=== PATIENT | male | born 1950 | race Caucasian/White ===

== ENCOUNTER 2018-12-20 18:30 | Emergency (ER) | payer MEDICARE, OTHER ==
[~2018-12-20] VITALS: Wt 142.9 kg
[2018-12-20] MEDS ORDERED: LIPITOR 80MG80 MG PO (18:45)
[2018-12-20] MEDS ORDERED: NORVASC 10MG10 MG PO (18:45)
[2018-12-20] MEDS ORDERED: CLOPIDOGREL PO (18:46)
[2018-12-20] MEDS ORDERED: FUROSEMIDE40 MG (18:47)
[2018-12-20] MEDS ORDERED: NOVOLOG 100U100 U/ML SQ (18:47)
[2018-12-20] MEDS ORDERED: COZAAR100 MG PO (18:48)
[2018-12-20] MEDS ORDERED: MAGNESIUM OXID400 MG PO (18:48)
[2018-12-20] MEDS ORDERED: LANTUS PEN100 U/ML SQ (18:48)
[2018-12-20] MEDS ORDERED: ALDACTONE 25MG25 MG PO (18:49)
[2018-12-20] MEDS ORDERED: TOPROL XL 50MG50 MG PO (18:49)
[2018-12-20] MEDS ORDERED: ZOLOFT 100MG100 MG PO (18:49)
[2018-12-20] MEDS ORDERED: METFORMIN HYD1000 MG PO (18:49)
[2018-12-20] MEDS ORDERED: FISH OIL1 IU PO (18:50)
[2018-12-20] MEDS ORDERED: DESYREL 100MG100 MG PO (18:50)
[2018-12-20] MEDS ORDERED: TOPCARE ASPIRIN81 M1 PO (18:50)
[2018-12-20 19:30] LABS: EOS # 0.1 (0.04-0.40); EOS % 1.5 % (0.0-4.0); HEMATOCRIT 40.4 % (42.0-52.0); HEMOGLOBIN 13.6 g/dL (13.5-18.0); LYMPH# 1.4 (1.50-4.00); MEAN CELL VOLUME 91 fl (78-100); MEAN CORPUSCULAR HEMOGLOBIN 31 pg (27-31); MEAN CORPUSCULAR HGB CONC 34 g/dL (33-37); MEAN PLATELET VOLUME 9.1 fl (7.4-10.4); MONO # 0.5 (0.20-0.80); NEU # 7.1 (1.40-6.50); PLATELET COUNT 188 K/mm3 (130-400); RED BLOOD COUNT 4.43 M/mm3 (4.20-5.60); RED CELL DISTRIBUTION WIDTH 12.7 % (11.5-14.5); WHITE BLOOD COUNT 9.2 K/mm3 (4.8-10.8)
[2018-12-20 19:40] LABS: ALBUMIN 4.2 g/dL (3.4-4.8)
[2018-12-20 19:41] LABS: POTASSIUM 4.4 mmol/L (3.5-5.1)
[2018-12-20 19:42] LABS: CALCIUM 9.8 mg/dL (8.3-10.5)
[2018-12-20 19:43] LABS: TOTAL PROTEIN 7.4 g/dL (6.2-8.1)
[2018-12-20 19:45] LABS: TOTAL BILIRUBIN 0.4 mg/dL (0.2-1.2)
[2018-12-20] MEDS ORDERED: MUCINEX 60600 MG/TA1 PO (20:40)
[2018-12-20 20:58] VITALS: BP 143/81
== END 2018-12-20 21:00 | disposition home or self-care (01) ==
LOC: ED 18:30
PROVIDERS: Physician Assistant
DX: J40 Bronchitis, not specified as acute or chronic (principal); N28.9 Disorder of kidney and ureter, unspecified; E11.9 Type 2 diabetes mellitus without complications; I10 Essential (primary) hypertension; G47.33 Obstructive sleep apnea (adult) (pediatric); Z86.73 Personal history of transient ischemic attack (TIA), and cerebral infarction without residual deficits; Z95.2 Presence of prosthetic heart valve; Z79.02 Long term (current) use of antithrombotics/antiplatelets; Z79.4 Long term (current) use of insulin; Z79.82 Long term (current) use of aspirin

== ENCOUNTER 2020-10-26 11:06 | Emergency (ER) | payer MEDICARE, OTHER ==
[~2020-10-26] VITALS: Ht 182.9 cm; Wt 142.9 kg
[~2020-10-26 11:06] MED LIST: ALDACTONE 25MG25 MG PO; CLOPIDOGREL PO; COZAAR100 MG PO; DESYREL 100MG100 MG PO; FISH OIL1 IU PO; FUROSEMIDE40 MG; LANTUS PEN100 U/ML SQ; LIPITOR 80MG80 MG PO; MAGNESIUM OXID400 MG PO; METFORMIN HYD1000 MG PO; MUCINEX 60600 MG/TA1 PO; NORVASC 10MG10 MG PO; NOVOLOG 100U100 U/ML SQ; TOPCARE ASPIRIN81 M1 PO; TOPROL XL 50MG50 MG PO; ZOLOFT 100MG100 MG PO
[2020-10-26] MEDS ORDERED: AUGMENTIN 875-1 EAC1 PO (12:09)
[2020-10-26 12:18] VITALS: BP 146/72
== END 2020-10-26 12:19 | disposition home or self-care (01) ==
LOC: ED 11:06
DX: H92.21 Otorrhagia, right ear (principal); J40 Bronchitis, not specified as acute or chronic; Z79.01 Long term (current) use of anticoagulants

== ENCOUNTER 2020-12-25 17:57 | Emergency (ER) | payer MEDICARE, OTHER ==
[~2020-12-25 17:57] MED LIST changes: +AUGMENTIN 875-1 EAC1 PO
[2020-12-25 18:50] VITALS: BP 154/88
== END 2020-12-25 18:51 | disposition home or self-care (01) ==
LOC: ED 17:57
DX: S61.412A Laceration without foreign body of left hand, initial encounter (principal); I10 Essential (primary) hypertension; E11.9 Type 2 diabetes mellitus without complications; I25.10 Atherosclerotic heart disease of native coronary artery without angina pectoris; Z79.4 Long term (current) use of insulin; Z79.84 Long term (current) use of oral hypoglycemic drugs; Z79.82 Long term (current) use of aspirin; Z79.899 Other long term (current) drug therapy; W26.8XXA Contact with other sharp object(s), not elsewhere classified, initial encounter
CPT/HCPCS: 90715

== ENCOUNTER 2023-03-01 11:31 | Emergency (ER) | payer MEDICARE, OTHER ==
[~2023-03-01] VITALS: Ht 182.9 cm; Wt 104.5 kg
[2023-03-01] MEDS ORDERED: OZEMPIC1 MG/0.71 SQ (11:43)
[2023-03-01 12:42] VITALS: BP 132/77
== END 2023-03-01 12:40 | disposition home or self-care (01) ==
LOC: ED 11:31
DX: R04.0 Epistaxis (principal)

== ENCOUNTER → 2023-10-18 | Outpatient (CLI) | payer OTHER ==
[~2023-10-18] MED LIST changes: +OZEMPIC1 MG/0.71 SQ
[2023-10-18 10:43] LABS: BASO # 0.02 K/mm3 (0.02-0.10); EOS # 0.05 K/mm3 (0.04-0.40); EOS % 1.2 % (0.0-4.0); HEMATOCRIT 37.9 % (42.0-52.0); HEMOGLOBIN 12.7 g/dL (13.5-18.0); LYMPH# 0.89 K/mm3 (1.50-4.00); MEAN CELL VOLUME 91 fl (78-100); MEAN CORPUSCULAR HEMOGLOBIN 30 pg (27-31); MEAN CORPUSCULAR HGB CONC 34 g/dL (33-37); MEAN PLATELET VOLUME 8.6 fl (7.4-10.4); MONO # 0.24 K/mm3 (0.20-0.80); NEU # 2.82 K/mm3 (1.40-6.50); PLATELET COUNT 140 K/mm3 (130-400); RED BLOOD COUNT 4.19 M/mm3 (4.20-5.60); RED CELL DISTRIBUTION WIDTH 13.4 % (11.5-14.5)
[2023-10-18 10:57] LABS: ALBUMIN 4.2 g/dL (3.4-4.8)
[2023-10-18 10:59] LABS: CALCIUM 9.2 mg/dL (8.3-10.5)
== END ==
LOC: LAB 10:32
PROVIDERS: Internal Medicine Nephrology
DX: N18.4 Chronic kidney disease, stage 4 (severe) (principal)